=== PATIENT | male | born 1990 | race Caucasian/White ===

== ENCOUNTER 2021-04-21 16:27 | Emergency (ER) | payer BC ==
--- NOTE | 2021-04-21 17:18 | CR ---
[id number] RAD/RAD Fingers Left EXAM: RAD Fingers Left CLINICAL DATA: TRAUMA COMPARISON: No previous similar exam is available. FINDINGS: No fracture or dislocation is seen. There is no radiopaque foreign body in the soft tissues. There is no air in the soft tissues. There is no cortical thickening or periosteal reaction either. IMPRESSION: SOFT TISSUE INJURY WITH NO BONY INVOLVEMENT Michael De Anda MD 04/21/21 [id number] Thank you for allowing us to participate in the care of your patient.
[2021-04-21] MEDS: Bupivacaine 0.5% 30 ML SDV INJECT PRN (17:33)
--- NOTE | 2021-04-21 17:40 | EDM.PDOC ---
ED HPI GENERAL MEDICAL PROBLEM - General Chief Complaint: Laceration Stated Complaint: Finger laceration Time Seen by Provider: 04/21/21 16:45 Source of Information: Reports: Patient History Limitations: Reports: No Limitations - History of Present Illness INITIAL COMMENTS - FREE TEXT/NARRATIVE: Patient states he was at work fell forward reached out to steady his self and his finger got caught between 2 pieces of metal and when he pulled back he cut the end of his finger. He denies any loss of sensation numbness tingling or coldness to the finger. He has no other complaints at this time he thinks his last tetanus was approximately 7 to 10 years ago but he is unsure Onset: Today, Sudden Duration: Minutes: Quality: Reports: Stabbing, Throbbing Severity: Severe (10 out of 10) Improves with: Reports: None Worsens with: Reports: None Associated Symptoms: Reports: No Other Symptoms Left Finger-Ring Pain Score (Numeric/FACES): 8 - Related Data Allergies Allergy/AdvReac Type Severity Reaction Status Date / Time tramadol Allergy Stomach Verified 04/21/21 16:45 Upset Home Meds: Home Meds . [No Known Home Meds] 04/21/21 [History] Past Medical History - Past Health History Medical/Surgical History: Denies Medical/Surgical History Social & Family History - Tobacco Use Tobacco Use Status *Q: Current Every Day Tobacco User Years of Tobacco use: 10 Packs/Tins Daily: 0.7 - Recreational Drug Use Recreational Drug Use: Yes Recreational Drug Type: Reports: Marijuana/Hashish ED ROS GENERAL - Review of Systems Review Of Systems: See Below Constitutional: Reports: No Symptoms HEENT: Reports: No Symptoms Respiratory: Reports: No Symptoms Cardiovascular: Reports: No Symptoms Endocrine: Reports: No Symptoms GI/Abdominal: Reports: No Symptoms : Reports: No Symptoms Musculoskeletal: Reports: Hand Pain, Other (At the tip of the finger) Skin: Reports: Wound Neurological: Reports: No Symptoms Psychiatric: Reports: No Symptoms Hematologic/Lymphatic: Reports: Anemia Immunologic: Reports: No Symptoms ED EXAM, SKIN/RASH Exam: See Below Exam Limited By: No Limitations General Appearance: Alert, WD/WN, No Apparent Distress Respiratory/Chest: No Respiratory Distress, Normal Breath Sounds Neurological: Alert, Oriented, CN II-XII Intact, Normal Cognition, Normal Gait, No Motor/Sensory Deficits Skin: Warm, Dry, Intact, Normal Color, No Rash Comments: Exam to the left fourth finger patient has positive FDS FDP normal extensors equal soft touch sensation positive cap refill there is approximately 1 cm by half centimeter by half centimeter flap laceration to the pad with a superficial laceration through the nail does not involve the bed. There is no visualization of tendons or bone He has positive radius and ulna the rest of the phalanges are full range of motion flexion and extension with no issues Course - Vital Signs Text/Narrative:: X-ray finger no acute fracture is noted Tetanus diphtheria was given secondary to his last was in 2010 Hand was soaked in warm hot soapy water and Hibiclens it was irrigated copious amounts with 1000 mL normal saline with Betadine under pressure digital block was performed used 1 cc total Marcaine 0.5% laceration closed with number of 6 simple interrupted 5-0 Ethilon dressed with Neosporin iodoform gauze Telfa and Coban Patient given verbal understanding signs symptoms of infection need to return to the ER and wound care instructions with verbal understanding Last Recorded V/S: Last Vital Signs Temp 36.7 C 04/21/21 16:30 Pulse 88 04/21/21 16:30 Resp 18 04/21/21 16:30 BP 138/68 04/21/21 16:30 Pulse Ox 98 04/21/21 16:30 - Orders/Labs/Meds Orders: Active Orders 24 hr Category Date Time Status Vaccine to be Administered/Admin Charge [RC] ASDIRECTED Care 04/21/21 17:43 Active Bupivacaine 0.5% [Marcaine 0.5%] Med 04/21/21 17:24 Active 30 ml INJECT ASDIRECTED PRN Medication Orders Bupivacaine HCl (Bupivacaine 0.5% 30 Ml Sdv) 30 ml INJECT ASDIRECTED PRN PRN Reason: Other Last Admin: 04/21/21 17:33 Dose: 30 ml Documented by: ELAYNE Meds: Medications Generic Name Dose Route Start Last Admin Trade Name Freq PRN Reason Stop Dose Admin Bupivacaine HCl 30 ml 04/21/21 17:24 04/21/21 17:33 Bupivacaine 0.5% 30 Ml Sdv INJECT 30 ml ASDIRECTED PRN Administration Other Discontinued Medications Generic Name Dose Route Start Last Admin Trade Name Freq PRN Reason Stop Dose Admin Hydrocodone Bitart/Acetaminophen 1 packet 04/21/21 17:43 04/21/21 17:49 Take Home: Acetaminophen/Hydrocodone 325-5 Mg, 5 Tab Pack PO 04/21/21 17:44 1 packet ONETIME ONE Administration Diphtheria/Tetanus/Acell Pertussis 0.5 ml 04/21/21 17:43 04/21/21 17:49 Diphtheria,Pertussis(Acell),Tetanus Vaccine 0.5 Ml Syringe IM 04/21/21 17:44 0.5 ml .ONCE ONE Administration Departure - Departure Time of Disposition: 18:00 Disposition: Home, Self-Care 01 Condition: Good Clinical Impression: Laceration of finger of left hand - Discharge Information *PRESCRIPTION DRUG MONITORING PROGRAM REVIEWED*: No *COPY OF PRESCRIPTION DRUG MONITORING REPORT IN PATIENT ALHAJI: No Instructions: Laceration Care, Adult, [id number] Referrals: PCP,None [Primary Care Provider] - Forms: ED Department Discharge Additional Instructions: Follow-up with your primary care provider in the next 24 hours for wound recheck Keep the area clean with warm hot soapy water apply Neosporin to the area at least twice a day keep the area covered for at least 24 hours change the dressing twice a day after the 3rd-4th day I would leave the wound uncovered at night to get air remove the stitches in 7 to 10 days Watch for any signs or symptoms of infection such as redness swelling increased pain drainage or discharge or anything that does not feel normal or look right You may take the Lortab 1 tablet every 4-6 hours as needed for pain Return to emergency room if anything changes or gets worse Sepsis Event Note (ED) - Focused Exam Vital Signs: Vital Signs Temp Pulse Resp BP Pulse Ox 04/21/21 16:30 36.7 C 88 18 138/68 98 - Problem List & Annotations (1) Laceration of finger of left hand SNOMED Code(s): 692240398, 48200684222320215 Code(s): S61.219A - LACERATION W/O FB OF UNSP FINGER W/O DAMAGE TO NAIL, INIT Status: Acute Current Visit: Yes - My Orders Last 24 Hours: My Active Orders 04/21/21 17:24 Bupivacaine 0.5% [Marcaine 0.5%] 30 ml INJECT ASDIRECTED PRN 04/21/21 17:43 Vaccine to be Administered/Admin Charge [RC] ASDIRECTED - Assessment/Plan Last 24 Hours: My Active Orders 04/21/21 17:24 Bupivacaine 0.5% [Marcaine 0.5%] 30 ml INJECT ASDIRECTED PRN 04/21/21 17:43 Vaccine to be Administered/Admin Charge [RC] ASDIRECTED
[2021-04-21] MEDS: Take Home: Acetaminophen/HYDROcodone 325-5 MG, 5 Tab Pack PO ONE (17:49)
[2021-04-21] MEDS: Diphtheria,Pertussis(Acell),Tetanus Vaccine 0.5 ML Syringe IM ONE (17:49)
== END 2021-04-21 18:29 | disposition home or self-care (01) ==
LOC: VM.ED 16:27
DX: S61.215A Laceration without foreign body of left ring finger without damage to nail, initial encounter (principal); Z23 Encounter for immunization; Z88.5 Allergy status to narcotic agent; Z72.0 Tobacco use; W23.0XXA Caught, crushed, jammed, or pinched between moving objects, initial encounter; Y92.89 Other specified places as the place of occurrence of the external cause; Y99.0 Civilian activity done for income or pay
CPT/HCPCS: 12001; 73140-F3; 90471; 90715; 99283; 99283-25; A9270-GY; J3490